=== PATIENT | female | born 1950 | race Caucasian/White ===

== ENCOUNTER 2017-01-14 08:35 | Day surgery (SDC) | payer MEDICARE ==
[2017-01-11 13:46] VITALS: BMI 27.3
[2017-01-14] MEDS ORDERED: PROPOFOL 20 ML ONE (08:43)
[2017-01-14 09:42] VITALS: TEMP 97.6
[2017-01-14 10:45] VITALS: BP 144/63; PULSE 52
--- NOTE | 2017-01-15 11:43 | PATH ---
Surgical Pathology Report Patient Name: ANTHONY HERRERA [facility]. Rec. #: [id number] /Age/Gender: 1950 (Age: 66) / F Account: [id number] Location: [facility]-ENDOSCOPY Taken: 01/14/2017 Received: 01/14/2017 Reported: 01/15/2017 Physicians: Sudha Walker M.D. Specimen(s) Received A: BX 2ND PORTION DUODENUM & DUODENAL BULB B: BX ANTRUM C: BX SCHATZKI'S RING D: BX MID ESOPHAGUS Clinical History Acid reflux, nausea, epigastric pain, weight loss Hiatal hernia, Schatzki's ring, GERD, gastritis Final Diagnosis A. DUODENUM, SECOND PORTION AND BULB, BIOPSY: DUODENAL MUCOSA WITH CHRONIC INFLAMMATION, FOCAL JIAN'S GLANDS HYPERPLASIA AND FOCAL GASTRIC METAPLASIA CONSISTENT WITH PEPTIC DUODENITIS. NO HISTOLOGIC EVIDENCE OF GLUTEN SENSITIVE ENTEROPATHY (CELIAC DISEASE). B. STOMACH, ANTRUM, BIOPSY: GASTRIC ANTRAL MUCOSA WITH MODERATE CHRONIC GASTRITIS AND REACTIVE GASTROPATHY. IMMUNOSTAIN FOR H. PYLORI IS NEGATIVE FOR ORGANISMS. C. SCHATZKI'S RING, BIOPSY: SQUAMOUS EPITHELIUM WITH CHRONIC INFLAMMATION AND REFLUX TYPE CHANGES. NO COLUMNAR EPITHELIUM PRESENT (NO INTESTINAL METAPLASIA/DELGADILLO'S ESOPHAGUS IDENTIFIED). D. ESOPHAGUS, MID, BIOPSY: SQUAMOUS EPITHELIUM WITH CHRONIC INFLAMMATION AND REFLUX TYPE CHANGES. NO EVIDENCE OF EOSINOPHILIC ESOPHAGITIS. Electronically Signed Rafael Buck M.D. Gross Description A. Received in formalin, labeled "biopsy second portion of duodenum and duodenal bulb" are 3 alonso, irregular portions of soft tissue ranging from 0.3-0.4 cm in greatest dimension. The specimens are submitted in toto in one cassette. B. Received in formalin, labeled "biopsy antrum" are 3 alonso, irregular portions of soft tissue ranging from 0.2-0.4 cm in greatest dimension. The specimens are submitted in toto in one cassette. C. Received in formalin, labeled "biopsy Schatzki's ring" are 3 aolnso, irregular portions of soft tissue ranging from 0.4-0.5 cm in greatest dimension. The specimens are submitted in toto in one cassette. D. Received in formalin, labeled "biopsy mid esophagus" are 2 alonso, irregular portions of soft tissue measuring 0.1 and 0.4 cm in greatest dimension. The specimens are submitted in toto in one cassette. 01/14/201701/14/2017
== END 2017-01-14 10:45 | disposition home or self-care (01) ==
LOC: JASU-ENDO 08:35
PROVIDERS: ATTEND Internal Medicine Gastroenterology
PROC: 0DB98ZX Excision of Duodenum, Via Natural or Artificial Opening Endoscopic, Diagnostic (ICD-10-PCS; 2017-01-14)
PROC: 0DB68ZX Excision of Stomach, Via Natural or Artificial Opening Endoscopic, Diagnostic (ICD-10-PCS; 2017-01-14)
PROC: 0DB28ZX Excision of Middle Esophagus, Via Natural or Artificial Opening Endoscopic, Diagnostic (ICD-10-PCS; 2017-01-14)
PROC: 0DB38ZX Excision of Lower Esophagus, Via Natural or Artificial Opening Endoscopic, Diagnostic (ICD-10-PCS; 2017-01-14)
PROC: 0D748ZZ Dilation of Esophagogastric Junction, Via Natural or Artificial Opening Endoscopic (ICD-10-PCS; principal; 2017-01-14 09:00)
DX: K21.9 Gastro-esophageal reflux disease without esophagitis (principal); K44.9 Diaphragmatic hernia without obstruction or gangrene; K22.2 Esophageal obstruction; K29.70 Gastritis, unspecified, without bleeding
CPT/HCPCS: 88305-TC; 88342-TC

== ENCOUNTER 2017-02-19 12:05 | Emergency (ER) | payer MEDICARE ==
[2017-02-19] MEDS ORDERED: methylPREDNISolone NA SUCC 125 MG/2 ML VIAL IVPB ONE (12:07)
[2017-02-19] MEDS ORDERED: EPINEPHrine 1:1,000 0.3 MG/0.3 ML SYR IM ONE (12:07)
[2017-02-19] MEDS ORDERED: FAMOTIDINE 20 MG/50 ML IVPB 50 ML IVPB ONE ×2 (12:07→12:20)
--- NOTE | 2017-02-19 12:14 | PDOC ---
History of Present Illness <Anshul Scott - Last Filed: 02/19/17 16:46> - General History Source: Patient Exam Limitations: No Limitations - History of Present Illness Initial Comments: 02/19/17 12:10 This patient is a 67-year-old female with a history of hypertension who presents emergency department due to ALLERGIC reaction. Patient states she was in his usual state of health, her daughter gave her some green beans this morning. Patient ate the green beans at approximately 10:30 AM. After eating this she immediately noticed that her throat was itchy and her entire body was itchy. She went to the pharmacy, and was given benadryl Pt took Benadryl 50mg po prior to arrival to the ER Pt states she has never had an allergic reaction like this to foods She does have a long standing history of allergic reaction to medications Currently: Throat/skin itchy Urticaria noted on extremities NO: Wheezing Stridor Nausea or vomiting PMH: HTN PSH: fatty liver Meds: Metoprolol ALL: please see MAR, MANY Social: denies drugs or cigarette use GENERAL/CONSTITUTIONAL: No: fever, chills, weakness, loss of appetite. HEAD, EYES, EARS, NOSE AND THROAT: Yes: throat itching No: difficulty swallowing , no globus sensation CARDIOVASCULAR: No: chest pain, lightheadedness, palpitations, syncope RESPIRATORY: No: cough, shortness of breath, wheezing, hemoptysis, stridor. GASTROINTESTINAL: No: nausea, vomiting, diarrhea, abdominal cramping, rectal bleeding, constipation. GENITOURINARY: No: dysuria, hematuria, frequency, urgency, flank pain. MUSCULOSKELETAL: No: back pain, neck pain, joint pain, muscle swelling or pain SKIN: Yes: pruritis, urticaria No: lesions, pallor, rash or easy bruising. NEUROLOGIC: No: headache, vertigo, paresthesias, weakness ENDOCRINE: No: unexplained weight gain or loss HEMATOLOGIC/LYMPHATIC: No: anemia, easy bleeding, swelling nodes. GENERAL: The patient is in no acute distress. HEAD: Normal with no signs of trauma. EYES: PERRLA, EOMI, sclera anicteric, conjunctiva clear. ENT: Ears normal, nares patent, oropharynx clear without exudates. Moist mucous membranes. Edema of soft pallat, uvula midline, non edematous NECK: Normal range of motion, supple without lymphadenopathy, JVD, or masses. LUNGS: Breath sounds equal, clear to auscultation bilaterally. No wheezes. HEART:Regular rate and rhythm, normal S1 and S2 without murmur, rub or gallop. ABDOMEN: Soft, nontender, normoactive bowel sounds. No guarding, no rebound. No masses palpable. EXTREMITIES: Normal range of motion, no edema. No clubbing or cyanosis. No erythema, or tenderness. NEUROLOGICAL: Cranial nerves II through XII grossly intact. Normal speech. No focal neurological deficits. MUSCULOSKELETAL: Back non-tender to palpation, no CVA tenderness SKIN: (+) urticarial lesions upper extremities noted 02/19/17 17:58 <Sophia Moss - Last Filed: 02/19/17 18:16> - General Chief Complaint: Allergic Reaction Stated Complaint: ALLERGIC REACTION TO PEAS Time Seen by Provider: 02/19/17 12:06 Past History <Anshul Scott - Last Filed: 02/19/17 16:46> - Past Medical History Anemia: No Asthma: No Cancer: No Cardiac Disorders: No CVA: No COPD: No CHF: No Dementia: No Diabetes: No GI Disorders: Yes (COLON POLYP, ACID REFLUX, DIVERTICULOSIS) Disorders: No HTN: Yes Hypercholesterolemia: No Liver Disease: Yes (FATTY LIVER) Seizures: No Thyroid Disease: No - Surgical History Abdominal Surgery: Yes Appendectomy: Yes Cardiac Surgery: No Cholecystectomy: No Lung Surgery: No Neurologic Surgery: No Orthopedic Surgery: No - Psycho/Social/Smoking Cessation Hx Smoking History: Never smoked Have you smoked in the past 12 months: No Hx Alcohol Use: Yes (OCCA.) Drug/Substance Use Hx: No Substance Use Type: None Hx Substance Use Treatment: No <Sophia Moss - Last Filed: 02/19/17 18:16> - Past Medical History Allergies/Adverse Reactions: Allergies Allergy/AdvReac Type Severity Reaction Status Date / Time amoxicillin [Amoxicillin] Allergy Severe Rash Verified 02/19/17 12:46 azithromycin Allergy Severe Rash Verified 02/19/17 12:43 ciprofloxacin Allergy Severe Rash Verified 02/19/17 12:44 clindamycin Allergy Severe Rash Verified 02/19/17 12:45 peas Allergy Severe Hives Verified 02/19/17 17:45 Penicillins Allergy Severe Itching Verified 02/19/17 12:44 Home Medications: Ambulatory Orders Metoprolol Succinate [Toprol XL -] 25 mg PO DAILY 05/20/15 Epinephrine (Epi-Pen 0.3MG) [Epipen 0.3MG -] 0.3 mg IM ASDIR #3 pens 02/19/17 Pantoprazole Sodium 40 mg PO DAILY 02/19/17 Prednisone [Deltasone -] 60 mg PO DAILY #12 tablet 02/19/17 Ranitidine [Zantac -] 150 mg PO DAILY #5 tablet 02/19/17 *Physical Exam - Vital Signs Last Vital Signs Temp Pulse Resp BP Pulse Ox 98.8 F 72 16 156/76 100 02/19/17 12:06 02/19/17 15:23 02/19/17 15:23 02/19/17 15:23 02/19/17 15:23 <Anshul Scott - Last Filed: 02/19/17 16:46> ED Treatment Course - Medications Given in the ED: ED Medications Discontinued Medications Generic Name Dose Route Start Last Admin Trade Name Quyen PRIza Reason Stop Dose Admin Epinephrine HCl 0.3 mg 02/19/17 12:07 02/19/17 12:22 Epipen 0.3mg - IM 02/19/17 12:08 0.3 mg ONCE ONE Administration Famotidine/Sodium Chloride 50 mls @ 100 mls/hr 02/19/17 12:07 02/19/17 12:27 Pepcid 20 Mg Premixed Ivpb - IVPB 02/19/17 12:36 100 mls/hr ONCE ONE Administration Methylprednisolone Sodium Succinate 125 mg 02/19/17 12:07 02/19/17 12:29 Solu-Medrol - IVPB 02/19/17 12:08 125 mg ONCE ONE Administration <Anshul Scott - Last Filed: 02/19/17 16:46> Medical Decision Making - Medical Decision Making 02/19/17 15:45 Dr. Vivas called [phone] for consult, Dr. Garcia is supervisor elementary education. Awaiting call back. 02/19/17 16:[address] Vivas's office placed. Was informed that they do not see patients at [facility]. <Anshul Scott - Last Filed: 02/19/17 16:46> - Critical Care Time Total Critical Care Time (minutes): 60 Critical Care Statement: The care of this patient involved high complexity decision making to prevent further life threatening deterioration of the patient 's condition and/or to evalute & treat vital organ system(s) failure or risk of failure. 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) 02/19/17 14:23 Uvula edematous Pt refusing admission to the hospital because she states she has to pay $350 in order to do so 02/19/17 15:27 Pt Uvula still edematous I spoke with patient in the presence of her daughter (They live together) I have explained that I would like to keep this patient in the hospital Pt again refusing 02/19/17 15:48 CAll placed to ENT 02/19/17 17:30 After two calls, we contacted ENT again They state, they do not come to [facility] and therefore can not discuss this case with me 02/19/17 17:59 Swelling beneath eyes Uvula still edematous <Sophia Moss - Last Filed: 02/19/17 18:16> *DC/Admit/Observation/Transfer <Anshul Scott - Last Filed: 02/19/17 16:46> - Discharge Dispostion Admit: No <Sophia Moss - Last Filed: 02/19/17 18:16> Diagnosis at time of Disposition: Severe allergic reaction Qualifiers: Encounter type: initial encounter Qualified Code(s): T78.40XA - Allergy, unspecified, initial encounter - Discharge Dispostion Disposition: AGAINST MEDICAL ADVICE Condition at time of disposition: Stable - Prescriptions Prescriptions: Prednisone [Deltasone -] 60 mg PO DAILY #12 tablet Epinephrine (Epi-Pen 0.3MG) [Epipen 0.3MG -] 0.3 mg IM ASDIR #3 pens Ranitidine [Zantac -] 150 mg PO DAILY #5 tablet - Referrals Referrals: Noé Vivas MD [Staff Physician] - - Patient Instructions Printed Discharge Instructions: DI for General Allergic Reactions, Anaphylaxis Additional Instructions: Thank you for coming in to the ER today I am sorry this happened in response to eating those peas Please: 1) take medications as prescribed 2) Follow up with your primary doctor in 2-3 days and with the Computer Customer Support Specialist within 1 week 3) monitor yourself for a recurrence of your symptoms You must keep an epinephrine pen with you in your purse or in your car at all times If you EVER develop symptoms like this, please use Epinephrine, call 911 and come back to the ER
[2017-02-19] MEDS ORDERED: SODIUM CHLORIDE 1,000 ML IV SCH (12:15)
[2017-02-19 12:18] VITALS: TEMP 98.8; BMI 29.2
[2017-02-19] MEDS ORDERED: methylPREDNISolone NA SUCC 125 MG/2 ML VIAL ONE (12:20)
[2017-02-19] MEDS ORDERED: EPINEPHrine/PF 1 MG/1 ML (1:1,000) AMPULE ONE (12:20)
[2017-02-19 17:24] VITALS: BP 139/69; PULSE 71
== END 2017-02-19 18:18 | disposition left against medical advice (07) ==
LOC: FER 12:05
PROC: 3E023GC Introduction of Other Therapeutic Substance into Muscle, Percutaneous Approach (ICD-10-PCS; principal; 2017-02-19)
PROC: 3E033GC Introduction of Other Therapeutic Substance into Peripheral Vein, Percutaneous Approach (ICD-10-PCS; 2017-02-19)
DX: T78.40XA Allergy, unspecified, initial encounter (principal); K76.0 Fatty (change of) liver, not elsewhere classified; I10 Essential (primary) hypertension; K21.9 Gastro-esophageal reflux disease without esophagitis
CPT/HCPCS: 99283-25

== ENCOUNTER 2017-09-10 09:00 | Day surgery (SDC) | payer MEDICARE ==
[2017-09-05 11:29] VITALS: BMI 28.9
[2017-09-10] MEDS ORDERED: BUPIVACAINE HCL/PF 0.5% (5MG/ML) 10 ML VIAL ONE (10:32)
[2017-09-10] MEDS ORDERED: DEXAMETHASONE SOD PHOSPHATE 4 MG/1 ML VIAL ONE (10:32)
[2017-09-10] MEDS ORDERED: LIDOCAINE HCL 1%, 10 MG/ML (20ML VIAL) ONE (10:32)
[2017-09-10] MEDS ORDERED: methylPREDNISolone ACET (DEPO) 80 MG/1 ML VIAL ONE (10:43)
[2017-09-10] MEDS ORDERED: ONDANSETRON 4 MG/2 ML VIAL IVPUSH PRN (10:56)
[2017-09-10] MEDS ORDERED: oxyCODONE HCL 5 MG TABLET PO PRN (10:56)
[2017-09-10] MEDS ORDERED: LACTATED RINGERS SOLUTION 1,000 ML IV SCH (11:00)
[2017-09-10] MEDS ORDERED: MIDAZOLAM HCL 2 MG/2 ML SINGLE DOSE VIAL ONE (11:41)
[2017-09-10] MEDS ORDERED: PROPOFOL 20 ML ONE ×2 (11:41→11:42)
[2017-09-10] MEDS ORDERED: LIDOCAINE HCL 2% (20ML MULTI-DOSE VIAL) NR ONE (12:01)
[2017-09-10] MEDS ORDERED: LIDOCAINE HCL/PF 2% SDV 5ML VIAL INF ONE ×2 (12:06)
[2017-09-10] MEDS ORDERED: BUPIVACAINE HCL/PF (5 MG/ML) 30 ML VIAL IJ ONE ×2 (12:06)
[2017-09-10] MEDS ORDERED: methylPREDNISolone ACET (DEPO) 80 MG/1 ML VIAL IM ONE (12:06)
--- NOTE | 2017-09-10 12:38 | OP ---
Operative Note - Note: Operative Date: 09/10/17 Pre-Operative Diagnosis: osteoarthritis right hip Operation: arthrogram and steroid injection right hip Implants: none Post-Operative Diagnosis: Same as Pre-op Surgeon: Juliano Velez Anesthesiologist/PROPOSAL REVIEW ANALYST: Karena Mascorro Anesthesia: General Operative Report Dictated: Yes
[2017-09-10 12:41] VITALS: TEMP 97.9
--- NOTE | 2017-09-10 13:19 | OP ---
DATE OF OPERATION: 09/10/2017 PREOPERATIVE DIAGNOSIS: Osteoarthritis of the right hip. POSTOPERATIVE DIAGNOSIS: Osteoarthritis of the right hip. PROCEDURE PERFORMED: Arthrogram of the right hip with steroid injection to the right hip. ANESTHESIA: General. ANESTHESIOLOGIST: Karena Mascorro MD DESCRIPTION OF PROCEDURE: The patient was brought to the operating room, given a general anesthetic by Dr. Mascorro. The right hip was then prepped and draped in the usual fashion. The hip was then surveyed using fluoroscopic control. A 22-gauge x 3-inch spinal needle was then used to inject the right hip. The needle was placed through the skin at the level of the inguinal ligament. Fluoroscopic control showed the tip of the needle in the hip joint. About 5 mL of Omnipaque were then injected into the joint, outlining the femoral neck, head, and the acetabulum. With certainty that the needle was in the joint, the established mixture of lidocaine 80 mg in 5 mL of 0.50% Marcaine and 80 mg of Depo-Medrol was then placed through the same needle and into the hip joint. The dilution of the Omnipaque in the hip joint proved that the solution was placed into the joint per se. The arthrogram was then read. The articular surfaces in the joint were seen to be normal. There was an area at the superior lateral aspect of the acetabulum that appeared to be cystic in nature, possibly representing an injury to the acetabular labrum. The needle was withdrawn from the hip joint. The Band-Aid was applied. X-ray pictures were taken. The anesthesia was reversed, and the patient was then taken to the recovery room in satisfactory condition. Yves [id number]
[2017-09-10 14:05] VITALS: BP 144/63; PULSE 63
== END 2017-09-10 13:35 | disposition home or self-care (01) ==
LOC: JASU-SURG 09:00
PROVIDERS: ATTEND Orthopaedic Surgery
PROC: 3E0U3BZ Introduction of Anesthetic Agent into Joints, Percutaneous Approach (ICD-10-PCS; 2017-09-10)
PROC: 3E0U33Z Introduction of Anti-inflammatory into Joints, Percutaneous Approach (ICD-10-PCS; principal; 2017-09-10 11:30)
DX: M16.11 Unilateral primary osteoarthritis, right hip (principal)
CPT/HCPCS: G0259; G0260; 76000-TC; 94760

== ENCOUNTER 2019-08-03 07:58 | Day surgery (SDC) | payer OTHER, MEDICARE ==
[2019-07-31 09:45] VITALS: BMI 27.1
[2019-08-03 09:52] VITALS: TEMP 97.5
[2019-08-03 10:17] VITALS: BP 125/61; PULSE 57
--- NOTE | 2019-08-04 17:44 | PATH ---
Surgical Pathology Report Patient Name: ANTHONY HERRERA [facility]. Rec. #: [id number] /Age/Gender: 1950 (Age: 69) / F Account: [id number] Location: [facility]-ENDOSCOPY Taken: 08/03/2019 Received: 08/03/2019 Reported: 08/04/2019 Physicians: Sudha Walker M.D. Specimen(s) Received A: ANTRAL ULCER B: SCHATZKI'S RING Clinical History Dysphagia Postoperative diagnosis: Gastritis, Schatzki's ring, antral ulcer, hiatal hernia, GERD Final Diagnosis A. STOMACH, ANTRAL ULCER, BIOPSY: GASTRIC ANTRAL MUCOSA WITH MILD CHRONIC FOCAL ACTIVE GASTRITIS, HEMORRHAGE, AND REACTIVE CHANGES. IMMUNOHISTOCHEMICAL STAIN FOR H. PYLORI IS NEGATIVE. B. SCHATZKI'S RING, BIOPSY: SQUAMOUS MUCOSA WITH CHANGES OF MILD TO MODERATE REFLUX TYPE ESOPHAGITIS. Electronically Signed Simran Haji M.D. Gross Description A. Received in formalin, labeled "biopsy antral ulcer" are 2 alonso, irregular portions of soft tissue averaging 0.2 cm. in greatest dimension. The specimens are submitted in toto in one cassette. B. Received in formalin, labeled "biopsy Schatzki's ring" are 5 alonso, irregular portions of soft tissue ranging from 0.1-0.2 cm. in greatest dimension. The specimens are submitted in toto in one cassette. 08/03/2019 saudi08/03/2019
== END 2019-08-03 10:35 | disposition home or self-care (01) ==
LOC: JASU-ENDO 07:58
PROVIDERS: ATTEND Internal Medicine Gastroenterology
PROC: 0DB48ZX Excision of Esophagogastric Junction, Via Natural or Artificial Opening Endoscopic, Diagnostic (ICD-10-PCS; 2019-08-03)
PROC: 0DB38ZX Excision of Lower Esophagus, Via Natural or Artificial Opening Endoscopic, Diagnostic (ICD-10-PCS; 2019-08-03)
PROC: 0D748ZZ Dilation of Esophagogastric Junction, Via Natural or Artificial Opening Endoscopic (ICD-10-PCS; principal; 2019-08-03 09:00)
DX: K21.9 Gastro-esophageal reflux disease without esophagitis (principal); K44.9 Diaphragmatic hernia without obstruction or gangrene; K22.2 Esophageal obstruction; K25.9 Gastric ulcer, unspecified as acute or chronic, without hemorrhage or perforation; K29.70 Gastritis, unspecified, without bleeding
CPT/HCPCS: 88305-TC; 88342-TC

== ENCOUNTER 2019-10-17 11:03 | Emergency (ER) | payer OTHER, MEDICARE ==
[2019-10-17 11:20] VITALS: BP 142/66; PULSE 91; TEMP 98; BMI 25.7
[2019-10-17] MEDS ORDERED: SODIUM CHLORIDE 1,000 ML IV ONE (11:40)
--- NOTE | 2019-10-17 12:21 | PDOC ---
History of Present Illness - General Chief Complaint: Lightheaded Stated Complaint: LIGHTHEADED Time Seen by Provider: 10/17/19 11:37 History Source: Patient Exam Limitations: No Limitations - History of Present Illness Initial Comments: 10/17/19 12:17 69 yo female pmh HTN and recent left knee replacement ([facility]) presents to the ED for 10 days of headaches, dizziness, weakness and nausea. Pt saw PCP Forientio, brain MRI done without sig findings less than 1 week ago however, due to persistent symptoms, pt presents to the ED. States the symptoms are very severe when she opens her eyes and changes positions, relieved by laying flat. Pt never had symptoms in the past. Pt given 12.5 mg meclizine as an outpatient without relied Past History - Past Medical History Allergies/Adverse Reactions: Allergies Allergy/AdvReac Type Severity Reaction Status Date / Time amoxicillin [Amoxicillin] Allergy Severe Rash Verified 10/17/19 11:06 azithromycin Allergy Severe Rash Verified 10/17/19 11:06 ciprofloxacin Allergy Severe Rash Verified 10/17/19 11:06 clindamycin Allergy Severe Rash Verified 10/17/19 11:06 peas Allergy Severe Hives Verified 10/17/19 11:06 Penicillins Allergy Severe Itching Verified 10/17/19 11:06 Home Medications: Ambulatory Orders Biotin 5,000 mcg PO DAILY 07/31/19 Cholecalciferol (Vitamin D3) [Vitamin D -] 1,000 unit PO DAILY 07/31/19 Metoprolol Succinate 50 mg PO DAILY 07/31/19 Meclizine HCl 1 tab PO ASDIR PRN 10/17/19 Pantoprazole Sodium 40 mg PO DAILY 10/17/19 levoFLOXacin [Levaquin -] 500 mg PO DAILY 10/17/19 Anemia: No Asthma: No Cancer: No Cardiac Disorders: No CVA: No COPD: No CHF: No Dementia: No Diabetes: No GI Disorders: Yes (HH,GERD WITH SCHATZKI RING DILATED, CECAL ADENOMA DIVERTICULOSIS) Disorders: No HTN: Yes Hypercholesterolemia: No Liver Disease: Yes (RIGHT HEPATIC LOBE HEMANGIOMA) Seizures: No Thyroid Disease: No - Surgical History Abdominal Surgery: Yes Appendectomy: Yes Cardiac Surgery: No Cholecystectomy: No Lung Surgery: No Neurologic Surgery: No Orthopedic Surgery: No - Psycho Social/Smoking Cessation Hx Smoking History: Never smoked Have you smoked in the past 12 months: No Hx Alcohol Use: Yes (OCCA.) Drug/Substance Use Hx: No Substance Use Type: None Hx Substance Use Treatment: No Review of Systems - Review of Systems Constitutional: Yes: See HPI HEENTM: Yes: See HPI Respiratory: Yes: See HPI Cardiac (ROS): Yes: See HPI ABD/GI: Yes: See HPI : Yes: See HPI Musculoskeletal: Yes: See HPI Integumentary: Yes: See HPI Neurological: Yes: See HPI *Physical Exam - Vital Signs Last Vital Signs Temp Pulse Resp BP Pulse Ox 98 F 91 H 18 142/66 99 10/17/19 11:11 10/17/19 11:11 10/17/19 11:11 10/17/19 11:11 10/17/19 11:11 - Physical Exam General Appearance: Yes: Nourished, Appropriately Dressed. No: Apparent Distress HEENT: positive: EOMI, CLIFFORD, Normal ENT Inspection, Normal Voice, Hearing Grossly Normal. negative: Tonsillar Erythema, TM Bulging, TM Dull, TM Erythema Neck: positive: Normal Thyroid, Supple. negative: Carotid bruit, Tender lateral , Tender midline Respiratory/Chest: positive: Lungs Clear, Normal Breath Sounds. negative: Accessory Muscle Use, Rapid RR, Crackles, Rales, Rhonchi, Stridor, Wheezing Cardiovascular: positive: Regular Rhythm, Regular Rate, S1, S2. negative: Edema , JVD, Murmur Vascular Pulses: Dorsalis-Pedis (R): 4+, Doralis-Pedis (L): 4+ Gastrointestinal/Abdominal: positive: Flat, Soft. negative: Pulsatile Mass, Distended, Guarding, Rebound, Tenderness Musculoskeletal: negative: CVA Tenderness Extremity: positive: Normal Capillary Refill, Normal Inspection, Normal Range of Motion Integumentary: positive: Normal Color, Dry, Warm Neurologic: positive: hide stretcher hand II-XII NML intact, Fully Oriented, Alert, Normal Mood/ Affect, Normal Response, Motor Strength 5/5, Finger to Nose (normal no ataxia). negative: Facial Droop, Numbness, Sensory Deficit, Confused, Disoriented ED Treatment Course - LABORATORY CBC & Chemistry Diagram: 10/17/19 12:08 10/17/19 12:08 - RADIOLOGY Radiology Studies Ordered: Category Date Time Status CHEST X-RAY PORTABLE* [RAD] Stat Radiology 10/17/19 11:40 Completed Medical Decision Making - Medical Decision Making 69 yo female pmh HTN and recent left knee replacement ([facility]) presents to the ED for 10 days of headaches, dizziness, weakness and nausea. Pt saw PCP Sincere, brain MRI done without sig findings less than 1 week ago however, due to persistent symptoms, pt presents to the ED. States the symptoms are very severe when she opens her eyes and changes positions, relieved by laying flat. Pt never had symptoms in the past. Pt given 12.5 mg meclizine as an outpatient without relied vitals WNL MRI completed, no concerns for mastoiditis on exam, no tenderness, no systemic symptoms. Pt treated with levaquin as outpatient and course is almost complete No CT head indicated, no new symptoms since MRI given fluids, reglan and higher dose of of meclizine. Pt reports improval of dizziness, able to ambulate in the ED without difficulty Labs WNL Pt given strict return precautions and discussed Cardiology f/u should the symptoms persist Discharge - Discharge Information Problems reviewed: Yes Clinical Impression/Diagnosis: Vertigo Condition: Stable Disposition: HOME - Admission No - Follow up/Referral Referrals: Humberto Park MD [Primary Care Provider] - - Patient Discharge Instructions Patient Printed Discharge Instructions: DI for Vertigo Additional Instructions: Please take 25 mg of Meclizine 2 times per day as needed. See your Primary Doctor within the next 48 hours. Return to the ER for new or concerning symptoms. Thank you - Post Discharge Activity
--- NOTE | 2019-10-17 12:23 | PDOC ---
Attending Attestation - Resident Resident Name: Jules Muñiz - ED Attending Attestation I have performed the following: I have examined & evaluated the patient, The case was reviewed & discussed with the resident, I agree w/resident's findings & plan, Exceptions are as noted - HPI HPI: 10/17/19 12:30 69y F hx of htn, recent R knee replacement presents with 10 days of headache/ dizziness/nausea. Pt had discussed with her PMD and neurologist and had a MRI as an outpatient. Pt has been having persistent sypmtoms so came to the ED. patient states that she is feeling out of sorts mild headache, when she is moving her head she feels is lightheaded sensation that she denies as room spinning dizziness or sensation of movement. When she is staying still that symptom resolves with that she have a mild pressure-like headache. She denies any other associated neurologic symptoms including double vision, changes in her speech, focal numbness, tingling, weakness. She denies any other systemic complaints including fevers and chills, chest pain, palpitations, neck pain, back pain. exam GENERAL: The patient is awake, alert, and fully oriented, Nontoxic - in no acute distress. HEAD: Normocephalic, atraumatic. EYES: extraocular movements intact, sclera anicteric, conjunctiva clear. ENT: Normal voice, Moist mucous membranes. NECK: Normal range of motion, supple LUNGS: Breath sounds equal, clear to auscultation bilaterally. No wheezes, no rhonchi, no rales. HEART: Regular rate and rhythm, normal S1 and S2 without murmur, rub or gallop. ABDOMEN: Soft, nontender, No guarding, no rebound. No CVA tenderness EXTREMITIES: Normal range of motion, no edema. NEUROLOGICAL: No facial assymetry, Normal speech, symmetric strength of the upper and lower extremities, no notable nystagmus, visual montano intact by confrontation, sensation intact in upper and lower extremities. normal finger to nose, normal rapid alternating movements. PSYCH: Normal mood, normal affect. SKIN: Warm, Dry, normal turgor, Unclear etiology of the patient's symptoms, Consider possible vagal vertigo, metabolic derangements, anemia MRI was performed recently which is reassuring We will give the patient fluids for hydration we will check basic labs, will give patient Reglan for headache will reassess 10/17/19 15:23 Patient was reassessed she is feeling improved almost asymptomatic. Her labs and UA were reviewed and unremarkable Patient is ambulatory with a normal gait Will discharge patient follow-up with neurology for further evaluation of her symptoms - Physicial Exam PE: 10/19/19 09:27 see above - Medical Decision Making 10/19/19 09:27 see above Heart Score/ECG Review - ECG Impressions Comment:: 10/17/19 14:19 Twelve-lead EKG was performed and reviewed by me. There is normal sinus rhythm with a normal rate. Rate of 82 The axis is normal. The intervals are normal. There is normal R wave progression There are no ST or T wave abnormalities.
[2019-10-17 12:26] LABS: BASO % 0.7 % (0-2.0); EOS % 1.3 % (0-4.5); HEMATOCRIT 39.8 % (32.4-45.2); HEMOGLOBIN 13.3 GM/dL (10.7-15.3); LYMPH % 21.4 % (8-40); MCH 30.3 pg (25.7-33.7); MCHC 33.4 g/dl (32.0-36.0); MEAN CELL VOLUME 90.7 fl (80-96); MEAN PLT VOLUME 8.4 fl (7.5-11.1); MONO % 6.8 % (3.8-10.2); NEUT % 69.8 % (42.8-82.8); PLATELET COUNT 303 K/MM3 (134-434); RBC 4.39 M/mm3 (3.60-5.2); RDW 13.8 % (11.6-15.6); WHITE BLOOD COUNT 9.2 K/mm3 (4.0-10.0)
[2019-10-17] MEDS ORDERED: METOCLOPRAMIDE HCL INJECTION 10 MG/2 ML VIAL IVPUSH ONE (12:43)
[2019-10-17] MEDS ORDERED: MECLIZINE HCL 25 MG TABLET (FP) PO ONE (12:43)
[2019-10-17] MEDS ORDERED: ACETAMINOPHEN 1000 MG/100 ML VIAL (NON FORMULARY) IVPB ONE (12:44)
[2019-10-17 12:48] LABS: ALBUMIN 3.8 g/dl (3.4-5.0); ALK PHOS 127 U/L (45-117); ANION GAP 8 MMOL/L (8-16); BILIRUBIN,TOTAL 0.4 mg/dL (0.2-1); BLOOD UREA NITROGEN 17.4 mg/dL (7-18); CALCIUM 9.7 mg/dL (8.5-10.1); CHLORIDE 107 mmol/L (98-107); CO2 23 mmol/L (21-32); CREATININE 0.8 mg/dL (0.55-1.3); GLUCOSE,RANDOM 112 mg/dL (74-106); POTASSIUM 4.2 mmol/L (3.5-5.1); SGOT/AST 22 U/L (15-37); SGPT/ALT 25 U/L (13-61); SODIUM 139 mmol/L (136-145); TOT PROT 7.5 g/dl (6.4-8.2)
[2019-10-17 12:50] LABS: URINE APPEARANCE CLEAR; URINE BILIRUBIN NEGATIVE (NEGATIVE); URINE COLOR YELLOW; URINE GLUCOSE (UA) NEGATIVE (NEGATIVE); URINE KETONE NEGATIVE (NEGATIVE); URINE LEUK ESTERASE NEGATIVE (NEGATIVE); URINE NITRITE NEGATIVE (NEGATIVE); URINE PROTEIN NEGATIVE (NEGATIVE); URINE UROBILINOGEN 0.2 mg/dL (0.2-1.0)
[2019-10-17] MEDS ORDERED: ACETAMINOPHEN INJECTION 100 ML IVPB ONE (12:54)
[2019-10-17] MEDS ORDERED: MECLIZINE HCL 25 MG TABLET (FP) ONE (12:54)
[2019-10-17] MEDS ORDERED: METOCLOPRAMIDE HCL INJECTION 10 MG/2 ML VIAL ONE (12:54)
--- NOTE | 2019-10-17 14:28 | EKG ---
Test Reason : Blood Pressure : / mmHG Vent. Rate : 082 BPM Atrial Rate : 087 BPM P-R Int : 134 ms QRS Dur : 082 ms QT Int : 386 ms P-R-T Axes : 041 -03 030 degrees QTc Int : 450 ms NORMAL SINUS RHYTHM WITH SINUS ARRHYTHMIA NORMAL ECG Confirmed by MD KYLER, NATHALIE ([id number]) on 10/17/2019 2:28:21 PM Referred By: Confirmed By:NATHALIE CHÁVEZ MD
== END 2019-10-17 15:15 | disposition home or self-care (01) ==
LOC: JER 11:03
PROC: 3E0337Z Introduction of Electrolytic and Water Balance Substance into Peripheral Vein, Percutaneous Approach (ICD-10-PCS; principal; 2019-10-17)
PROC: 3E033GC Introduction of Other Therapeutic Substance into Peripheral Vein, Percutaneous Approach (ICD-10-PCS; 2019-10-17)
PROC: 3E033NZ Introduction of Analgesics, Hypnotics, Sedatives into Peripheral Vein, Percutaneous Approach (ICD-10-PCS; 2019-10-17)
DX: R42 Dizziness and giddiness (principal); I10 Essential (primary) hypertension; Z96.652 Presence of left artificial knee joint; Z87.19 Personal history of other diseases of the digestive system; Z88.0 Allergy status to penicillin; Z88.1 Allergy status to other antibiotic agents; Z88.8 Allergy status to other drugs, medicaments and biological substances; Z91.018 Allergy to other foods
CPT/HCPCS: 36415; 71045-TC-FY; 80053; 81003; 82550; 84484; 85025; 87086; 93005; 93010; 96361; 96374; 96375; 99283-25; J0131; J7030

== ENCOUNTER 2020-11-02 05:00 | Day surgery (SDC) | payer OTHER, MEDICARE ==
[2020-11-01 12:22] VITALS: BMI 26.5
[2020-11-02 11:56] VITALS: BP 140/51; PULSE 57; TEMP 97.5
== END 2020-11-02 11:50 | disposition home or self-care (01) ==
LOC: JASU-ENDO 05:00
PROVIDERS: ATTEND Internal Medicine Gastroenterology
PROC: 0DBL8ZX Excision of Transverse Colon, Via Natural or Artificial Opening Endoscopic, Diagnostic (ICD-10-PCS; 2020-11-02)
PROC: 0DBH8ZX Excision of Cecum, Via Natural or Artificial Opening Endoscopic, Diagnostic (ICD-10-PCS; 2020-11-02)
PROC: 0DBL8ZX Excision of Transverse Colon, Via Natural or Artificial Opening Endoscopic, Diagnostic (ICD-10-PCS; 2020-11-02)
PROC: 0DBM8ZX Excision of Descending Colon, Via Natural or Artificial Opening Endoscopic, Diagnostic (ICD-10-PCS; principal; 2020-11-02 10:00)
DX: D12.3 Benign neoplasm of transverse colon (principal); D12.0 Benign neoplasm of cecum; D12.4 Benign neoplasm of descending colon; K57.30 Diverticulosis of large intestine without perforation or abscess without bleeding; Z86.010 Personal history of colon polyps; I10 Essential (primary) hypertension; Z88.0 Allergy status to penicillin; Z88.1 Allergy status to other antibiotic agents

== ENCOUNTER 2021-02-24 18:10 | Emergency (ER) | payer OTHER, MEDICARE ==
[2021-02-24 18:17] VITALS: BP 157/80; PULSE 91; TEMP 98.2; BMI 27.4
== END 2021-02-24 20:25 | disposition home or self-care (01) ==
LOC: FER 18:10
DX: R22.42 Localized swelling, mass and lump, left lower limb (principal)
CPT/HCPCS: 93971-TC; 99284-25

== ENCOUNTER 2022-12-17 18:03 | Emergency (ER) | payer OTHER, MEDICARE ==
[2022-12-17 19:29] VITALS: BP 150/86; PULSE 75; RESP 18; TEMP 97.9; BMI 28.3
[2022-12-17] MEDS ORDERED: KETOROLAC TROMETHAMINE 60 MG/2 ML VIAL ONE (20:28)
[2022-12-17 20:32] LABS: URIC ACID 3.6 mg/dl (2.6-7.2)
[2022-12-17] MEDS ORDERED: KETOROLAC TROMETHAMINE 60 MG/2 ML VIAL IM ONE (20:32)
[2022-12-17 21:59] LABS: HEMATOCRIT 36.9 % (32.4-45.2); HEMOGLOBIN 12.4 GM/dL (10.7-15.3); MCH 30.5 pg (25.7-33.7); MCHC 33.6 g/dl (32.0-36.0); MEAN CELL VOLUME 90.8 fl (80-96); MEAN PLT VOLUME 8.9 fl (7.5-11.1); PLATELET COUNT 246 10^3/uL (134-434); RBC 4.06 M/mm3 (3.60-5.2); RDW 13.2 % (11.6-15.6); WHITE BLOOD COUNT 10.3 K/mm3 (4.0-10.0)
== END 2022-12-17 22:32 | disposition home or self-care (01) ==
LOC: FER 18:03
DX: M25.572 Pain in left ankle and joints of left foot (principal)
CPT/HCPCS: 36415; 84550; 85027; 86140; 86618; 99284-25

== ENCOUNTER 2022-12-20 16:27 | Emergency (ER) | payer OTHER, MEDICARE ==
[2022-12-20 16:36] VITALS: RESP 18; BMI 28.3
[2022-12-20] MEDS ORDERED: SODIUM CHLORIDE 1,000 ML IV STA (18:39)
[2022-12-20 18:55] VITALS: PULSE 64
[2022-12-20 19:54] LABS: BASO % 0.7 % (0-2.0); EOS % 1.8 % (0-4.5); HEMATOCRIT 44.4 % (32.4-45.2); HEMOGLOBIN 14.5 GM/dL (10.7-15.3); LYMPH % 33.7 % (8-40); MCH 29.9 pg (25.7-33.7); MCHC 32.7 g/dl (32.0-36.0); MEAN CELL VOLUME 91.5 fl (80-96); MEAN PLT VOLUME 9.4 fl (7.5-11.1); MONO % 8.7 % (3.8-10.2); NEUT % 55.1 % (42.8-82.8); PLATELET COUNT 234 10^3/uL (134-434); RBC 4.85 M/mm3 (3.60-5.2); RDW 14.2 % (11.6-15.6); WHITE BLOOD COUNT 9.3 K/mm3 (4.0-10.0)
[2022-12-20 20:18] LABS: CALCIUM 10.2 mg/dL (8.5-10.1)
[2022-12-20 20:19] LABS: ALBUMIN 4.1 g/dl (3.4-5.0); BLOOD UREA NITROGEN 21.4 mg/dL (7-18)
[2022-12-20 20:21] LABS: CREATININE 0.6 mg/dL (0.55-1.3)
[2022-12-20 20:24] LABS: BILIRUBIN,TOTAL 0.6 mg/dL (0.2-1); TOT PROT 8.1 g/dl (6.4-8.2)
[2022-12-20 20:45] LABS: MAGNESIUM 2.7 mg/dL (1.8-2.4)
[2022-12-20 21:34] VITALS: BP 144/65; TEMP 97.6
[2022-12-20 22:52] LABS: BLOOD UREA NITROGEN 15.9 mg/dL (7-18)
[2022-12-20 22:55] LABS: CREATININE 0.4 mg/dL (0.55-1.3)
[2022-12-20 23:01] LABS: CALCIUM 8.6 mg/dL (8.5-10.1)
== END 2022-12-20 23:18 | disposition left against medical advice (07) ==
LOC: JER 16:27
PROC: 3E0337Z Introduction of Electrolytic and Water Balance Substance into Peripheral Vein, Percutaneous Approach (ICD-10-PCS; principal; 2022-12-20)
DX: R42 Dizziness and giddiness (principal); R51.9 Headache, unspecified; R11.0 Nausea; H53.8 Other visual disturbances; I10 Essential (primary) hypertension; R55 Syncope and collapse; Z53.21 Procedure and treatment not carried out due to patient leaving prior to being seen by health care provider; Z20.822 Contact with and (suspected) exposure to COVID-19
CPT/HCPCS: 0241U-QW; 36415; 70450-TC; 71046-TC-FY; 80048; 80053; 83735; 84484; 85025; 93005; 93010; 99285-25

== ENCOUNTER 2023-04-25 04:35 | Day surgery (SDC) | payer OTHER, MEDICARE ==
[2023-04-22 10:23] VITALS: BMI 27.6
[2023-04-25 08:50] VITALS: RESP 18
[2023-04-25 10:55] VITALS: TEMP 97
[2023-04-25 11:11] VITALS: PULSE 56
[2023-04-25 11:29] VITALS: BP 141/45
== END 2023-04-25 11:27 | disposition home or self-care (01) ==
LOC: JASU-ENDO 04:35
PROVIDERS: ATTEND Internal Medicine Gastroenterology
PROC: 0DB68ZX Excision of Stomach, Via Natural or Artificial Opening Endoscopic, Diagnostic (ICD-10-PCS; principal; 2023-04-25 09:30)
DX: K21.9 Gastro-esophageal reflux disease without esophagitis (principal); K44.9 Diaphragmatic hernia without obstruction or gangrene
CPT/HCPCS: 88305-TC; 88342-TC

== ENCOUNTER 2023-06-25 08:39 | Emergency (ER) | payer OTHER, MEDICARE ==
[2023-06-25 08:49] VITALS: BP 158/66; PULSE 77; RESP 16; TEMP 98.5; BMI 27.4
[2023-06-25] MEDS ORDERED: KETOROLAC TROMETHAMINE 60 MG/2 ML VIAL IM ONE (09:05)
[2023-06-25] MEDS ORDERED: KETOROLAC TROMETHAMINE 30 MG/1 ML VIAL ONE (09:38)
[2023-06-25 10:29] LABS: HEMATOCRIT 39.2 % (32.4-45.2); HEMOGLOBIN 12.8 G/dL (10.7-15.3); MCH 30.3 pg (25.7-33.7); MCHC 32.7 g/dl (32.0-36.0); MEAN CELL VOLUME 92.5 fl (80-96); MEAN PLT VOLUME 8.3 fl (7.5-11.1); PLATELET COUNT 232.4 10^3/uL (134-434); RBC 4.24 10^6/uL (3.60-5.2); RDW 13.8 % (11.6-15.6); WHITE BLOOD COUNT 8.2 10^3/uL (4.0-10.8)
[2023-06-25 11:25] LABS: PLATELET ESTIMATE ADEQUATE
[2023-06-25 12:20] LABS: POTASSIUM 4.1 mmol/L (3.5-5.1)
[2023-06-25 12:29] LABS: ALBUMIN 3.3 g/dl (3.4-5.0); BLOOD UREA NITROGEN 13.9 mg/dL (7-18)
[2023-06-25 12:31] LABS: CREATININE 0.5 mg/dL (0.55-1.3)
[2023-06-25 12:32] LABS: TOT PROT 6.8 g/dl (6.4-8.2)
[2023-06-25 12:33] LABS: BILIRUBIN,TOTAL 0.5 mg/dL (0.2-1)
[2023-06-25] MEDS ORDERED: CIPROFLOXACIN 250 MG TABLET (RESTRICTED TO ID) PO ONE (13:46)
== END 2023-06-25 13:57 | disposition home or self-care (01) ==
LOC: FER 08:39
PROC: 3E0233Z Introduction of Anti-inflammatory into Muscle, Percutaneous Approach (ICD-10-PCS; principal; 2023-06-25)
DX: R10.32 Left lower quadrant pain (principal); R11.0 Nausea; K59.09 Other constipation; K57.92 Diverticulitis of intestine, part unspecified, without perforation or abscess without bleeding
CPT/HCPCS: 36415; 74177-TC; 80053; 81003; 85027; 96372; 99285-25; Q9967

== ENCOUNTER 2024-01-02 04:06 | Day surgery (SDC) | payer OTHER, MEDICARE ==
[2023-12-27 13:54] VITALS: BMI 27.6
[2024-01-02 09:07] VITALS: TEMP 98
[2024-01-02 09:35] VITALS: RESP 19
[2024-01-02 09:39] VITALS: BP 123/66; PULSE 64
== END 2024-01-02 09:40 | disposition short-term general hospital (02) ==
LOC: JASU-ENDO 04:06
PROVIDERS: ATTEND Internal Medicine Gastroenterology
PROC: 0DBH8ZX Excision of Cecum, Via Natural or Artificial Opening Endoscopic, Diagnostic (ICD-10-PCS; 2024-01-02)
PROC: 0DBK8ZX Excision of Ascending Colon, Via Natural or Artificial Opening Endoscopic, Diagnostic (ICD-10-PCS; principal; 2024-01-02 08:30)
DX: Z12.11 Encounter for screening for malignant neoplasm of colon (principal); D12.2 Benign neoplasm of ascending colon; D12.0 Benign neoplasm of cecum; K57.30 Diverticulosis of large intestine without perforation or abscess without bleeding; Z86.010 Personal history of colon polyps
CPT/HCPCS: 88305-TC

== ENCOUNTER 2024-04-25 11:47 | Emergency (ER) | payer OTHER, MEDICARE ==
[2024-04-25 12:11] VITALS: BP 155/72; PULSE 72; RESP 19; TEMP 97.9; BMI 27.4
[2024-04-25] MEDS ORDERED: LIDOCAINE 5% TOPICAL PATCH ONE (12:20)
[2024-04-25] MEDS ORDERED: ACETAMINOPHEN INJECTION 100 ML IVPB ONE (12:20)
[2024-04-25] MEDS: ACETAMINOPHEN 1000 MG/100 ML BAG IVPB ONE (12:25)
[2024-04-25 12:51] LABS: HEMATOCRIT 41.5 % (32.4-45.2); HEMOGLOBIN 13.2 G/dL (10.7-15.3); MCH 29.2 pg (25.7-33.7); MCHC 31.7 g/dl (32.0-36.0); MEAN CELL VOLUME 92.3 fl (80-96); MEAN PLT VOLUME 8.5 fl (7.5-11.1); RDW 14.3 % (11.6-15.6); WHITE BLOOD COUNT 7.4 10^3/uL (4.0-10.8)
[2024-04-25 12:59] LABS: ALBUMIN 4.5 g/dl (3.4-5.0); BILIRUBIN,TOTAL 0.4 mg/dl (0.2-1); CALCIUM 9.5 mg/dl (8.5-10.1); CREATININE 0.7 mg/dl (0.6-1.3); POTASSIUM 3.9 mmol/L (3.5-5.1); TOT PROT 6.6 g/dl (6.4-8.2)
[2024-04-25 13:01] LABS: PLATELET ESTIMATE ADEQUATE
[2024-04-25] MEDS: LIDOCAINE 5% TOPICAL PATCH TP ONE (13:45)
[2024-04-25] MEDS ORDERED: SULFAMETHOXAZOLE/TRIMETHOPRIM 800MG/160MG D.S. TABLET ONE (14:17)
[2024-04-25] MEDS: SULFAMETHOXAZOLE/TRIMETHOPRIM 800MG/160MG D.S. TABLET PO ONE (14:19)
[2024-04-25] MEDS ORDERED: LIDOCAINE PATCH REMOVAL MC SCH (22:00)
== END 2024-04-25 16:14 | disposition home or self-care (01) ==
LOC: FER 11:47
PROC: 3E033NZ Introduction of Analgesics, Hypnotics, Sedatives into Peripheral Vein, Percutaneous Approach (ICD-10-PCS; principal; 2024-04-25)
DX: N12 Tubulo-interstitial nephritis, not specified as acute or chronic (principal); R10.30 Lower abdominal pain, unspecified
CPT/HCPCS: 36415; 74176-TC; 80053; 81003; 81015; 85027; 99284-25; J0131

== ENCOUNTER 2024-07-09 08:57 | Emergency (ER) | payer OTHER, MEDICARE ==
[2024-07-09 09:02] VITALS: TEMP 98.2; BMI 26.9
[2024-07-09] MEDS ORDERED: IBUPROFEN 400 MG TABLET (FP) PO ONE (09:39)
[2024-07-09] MEDS ORDERED: METOCLOPRAMIDE HCL INJECTION 10 MG/2 ML VIAL ONE (09:41)
[2024-07-09] MEDS: IBUPROFEN 400 MG TABLET (FP) PO ONE (09:48)
[2024-07-09] MEDS: METOCLOPRAMIDE HCL INJECTION 10 MG/2 ML VIAL IVPB ONE (09:54)
[2024-07-09 09:55] LABS: HEMATOCRIT 46.1 % (32.4-45.2); HEMOGLOBIN 14.5 G/dL (10.7-15.3); MCHC 31.4 g/dl (32.0-36.0); MEAN CELL VOLUME 95.4 fl (80-96); PLATELET COUNT 303.9 10^3/uL (134-434); RBC 4.83 10^6/uL (3.60-5.2); RDW 14.2 % (11.6-15.6); WHITE BLOOD COUNT 7.1 10^3/uL (4.0-10.8)
[2024-07-09 10:19] LABS: ALBUMIN 4.8 g/dl (3.4-5.0); BILIRUBIN,TOTAL 0.5 mg/dl (0.2-1); CALCIUM 10.9 mg/dl (8.5-10.1); CREATININE 0.6 mg/dl (0.6-1.3); POTASSIUM 4.2 mmol/L (3.5-5.1); TOT PROT 7.6 g/dl (6.4-8.2)
[2024-07-09 10:21] LABS: PLATELET ESTIMATE ADEQUATE
[2024-07-09 12:51] VITALS: BP 153/64; PULSE 74; RESP 16
== END 2024-07-09 13:14 | disposition home or self-care (01) ==
LOC: FER 08:57
PROC: 3E033GC Introduction of Other Therapeutic Substance into Peripheral Vein, Percutaneous Approach (ICD-10-PCS; principal; 2024-07-09)
DX: I10 Essential (primary) hypertension (principal); H53.8 Other visual disturbances; R11.0 Nausea; R42 Dizziness and giddiness; R51.9 Headache, unspecified
CPT/HCPCS: 36415; 80053; 84484; 85027; 93005; 99284-25

== ENCOUNTER 2024-11-18 06:30 | Day surgery (SDC) | payer OTHER, MEDICARE ==
[2024-11-13 14:09] VITALS: BMI 28.9
[2024-11-18] MEDS: ceFAZolin SODIUM 1 GM VIAL IVPB ONE
[~2024-11-18 06:30] MED LIST: LACTATED RINGERS SOLUTION 1,000 ML IV SCH; ONDANSETRON 4 MG/2 ML VIAL IVPUSH PRN
[2024-11-18] MEDS ORDERED: PIPERACILLIN/TAZOBACTAM 3.375 GM VIAL IVPB ONE (16:02)
[2024-11-18] MEDS: PIPERACILLIN/TAZOBACTAM 3.375 GM VIAL IVPB ONE ×2 (16:02→16:04)
[2024-11-18 17:13] VITALS: BP 125/48; PULSE 63; RESP 18; TEMP 97.8
== END 2024-11-18 17:50 | disposition home or self-care (01) ==
LOC: JASU-SURG 06:30
PROVIDERS: ATTEND Urology
PROC: 0WHR8YZ Insertion of Other Device into Genitourinary Tract, Via Natural or Artificial Opening Endoscopic (ICD-10-PCS; principal; 2024-11-18 14:30)
DX: N36.42 Intrinsic sphincter deficiency (ISD) (principal); N39.3 Stress incontinence (female) (male)
CPT/HCPCS: 51715; L8606; 94760